=== PATIENT | male | born 1955 | race Caucasian/White ===

== ENCOUNTER 2017-07-30 11:15 | Observation (INO) ==
--- NOTE | 2017-07-30 12:23 | Consult Report ---
History of Present Illness Consult date: 07/30/17 Requesting physician: Viraj Hamron Consult reason: shortness of breath Chief complaint: SOA, chest pain Additional Medical History:: 1. Tobacco use, 1 pack per day for greater than 40 years 2. Family history of congestive heart failure, mother 3 history of low back surgery, Dr. Olsen, for pinched nerve History of present illness: 62-year-old white male with significant tobacco use history discontinued 6 months ago presented to Dr. Harmon's office for evaluation of a one-month history of increasing exertional shortness of breath. Patient also relates 2 episodes of discomfort in his chest that have woken him from sleep. He is a somewhat stoic historian and does not want a give a lot of details regarding his symptoms. His states that he has never wanted to come to the doctor and that it was his idea to come today for evaluation. Reportedly had an abnormal EKG in Dr. Harmon's office and was admitted for progressive angina symptoms. EKG obtained in the hospital here shows sinus rhythm with left atrial enlargement, incomplete right bundle branch block and poor R-wave progression anteriorly. No acute ST segment changes noted. Cardiology consulted for evaluation and recommendations. Meds Home Medications Medication Instructions Recorded Confirmed Type No Known Home Medications 07/30/17 07/30/17 History Allergies Allergy/AdvReac Type Severity Reaction Status Date / Time No Known Allergies Allergy Verified 07/30/17 12:34 Review of Systems - *Cardiovascular Reports chest pain - *Respiratory Reports shortness of breath with activity - *Gastrointestinal Denies abdominal pain - *Musculoskeletal Reports back pain Exam - *Routine Neck Exam Absent: JVD, carotid bruit - *Routine Respiratory Exam Present: decreased breath sounds, CTA bilaterally. Absent: rhonchi, wheezes - *Routine Cardiovascular Exam Present: RRR. Absent: murmur, gallop - *Routine Abdominal Exam Present: firm. Absent: tenderness - *Routine Extremities Exam Absent: edema - *Routine Neurological Exam Present: alert, oriented X3, moving all extremities Assessment and Plan (1) Dyspnea on exertion Current visit: Yes Status: Acute Category: Medical Code(s): R06.09 - Other forms of dyspnea (2) Chest pain Current visit: Yes Status: Acute Category: Medical Code(s): R07.9 - Chest pain, unspecified (3) Elevated blood pressure reading Current visit: Yes Status: Acute Category: Medical Code(s): R03.0 - Elevated blood-pressure reading, without diagnosis of hypertension (4) Ex-smoker for less than 1 year Current visit: Yes Status: Acute Category: Social Hx Code(s): Z78.9 - Other specified health status - Assessment and plan all Dx Assessment and Plan for all problems:: 1. Patient is currently not in any distress. No acute EKG changes noted. Labs are pending at this time. I did discuss the options of medication and stress testing versus proceeding with cardiac catheterization today. Patient does not like the idea of medications and states he would like to proceed with cardiac catheterization to know for sure what his heart arteries look like. 2. Preliminary echocardiogram shows preserved left ventricular ejection fraction. Official report to follow. 3. With elevated blood pressure and heart rate in the setting of shortness of breath and chest pain would recommend adding beta-tamara therapy.
[2017-07-30 12:30] LABS: Basophils # 0.1 K/mm3 (0-0.2); Basophils % 1.5 % (0.1-2.0); Eosinophils # 0.1 K/mm3 (0.0-0.4); Eosinophils % 1.7 % (0.1-12.0); Hematocrit 44.5 % (42.0-52.0); Hemoglobin 15.1 g/dL (14.1-18.0); Lymphocytes # 3.5 K/mm3 (0.7-4.5); Lymphocytes % 65.6 K/mm3 (10-50); Mean Corpuscular HGB Conc 33.9 g/dL (31.8-35.4); Mean Corpuscular Hemoglobin 31.3 pg (27.0-31.2); Mean Corpuscular Volume 92.3 fl (80-94); Mean Platelet Volume 8.5 fl (7.4-10.4); Monocytes # 0.3 K/mm3 (0.1-1.0); Neutrophils # 1.4 K/mm3 (1.8-7.8); Neutrophils % 25.3 % (37.0-80.0); Platelet Count 71 K/mm3 (142-424); Red Blood Count 4.82 M/mm3 (4.60-6.20); Red Cell Distribution Width 13.4 % (11.5-17.5); White Blood Count 5.4 K/mm3 (4.8-10.8)
[2017-07-30 12:43] LABS: Anion Gap 11.1 mEq/L (5-15); Blood Urea Nitrogen 13 mg/dL (7-18); Carbon Dioxide 27 mmol/L (21.0-32.0); Chloride 101 mmol/L (98-107); Glucose 107 mg/dL (74-106); Potassium 4.1 mmoL/L (3.5-5.1); Sodium 135 mmol/L (136-145)
[2017-07-30 13:02] LABS: Eosinophils % 1 % (0-3); Lymphocytes % 49 % (10-50); Monocytes % 7 % (2-9); Neutrophils % 27 % (42-76); Total Cells Counted 100
[2017-07-30 13:03] LABS: RBC Morphology Normal
--- NOTE | 2017-07-30 13:09 | History & Physical Report ---
*Admission Date: 07/30/17 *Chief complaint: Dyspnea with exertion *History of present illness: 62-year-old white male who quit smoking about 3 months ago, came to my office today with a chief complaint of dyspnea over the past 5-6 days. He notices this almost exclusively with exertion but notices that it is becoming worse over the last couple of days and he and his are concerned about it. He does not report chest pain but does report that his chest feels some pressure. Denies limitations or increasing edema. [facility] History I have reviewed the patient's past medical history: Yes Medical History: Denies:: Cancer, Diabetes Mellitus Type 1, Diabetes Mellitus Type 2, Internal Pacemaker, MRSA Other Surgeries: No: Pacemaker Amputation: No Fractures: No - *Social History Educational Level: Completed High School Smoking Status: Former smoker Tobacco Type: cigarettes Alcohol Intake: current Alcohol Intake Frequency:: a few times a week Occupational Status: employed Housing: house Household Members: spouse - Psychiatric History Expresses thoughts of harming self/others: None Suicide Plan Description: No Plan *Family Hx:: Cancer Review of Systems - Review of Systems Review of systems:: pertinent systems reviewed and negative unless documented below Meds Home Medications Medication Instructions Recorded Confirmed Type No Known Home Medications 07/30/17 07/30/17 History Allergies Allergy/AdvReac Type Severity Reaction Status Date / Time No Known Allergies Allergy Verified 07/30/17 12:34 Exam Vital signs and Labs for Last 24 Hours: Temp Pulse Resp 97.9 F 98 H 22 07/30/17 11:59 07/30/17 11:59 07/30/17 11:59 Laboratory Results - last 24 hr 07/30/17 12:20: WBC 5.4, RBC 4.82, Hgb 15.1, Hct 44.5, MCV 92.3, MCH 31.3 H, MCHC 33.9, RDW 13.4, Plt Count 71 L, MPV 8.5, Neut % (Auto) 25.3 L, Lymph % ( Auto) 65.6 H, [place] % (Auto) 6.0, Eos % (Auto) 1.7, Baso % (Auto) 1.5, Neut # ( Auto) 1.4 L, Lymph # (Auto) 3.5, [place] # (Auto) 0.3, Eos # (Auto) 0.1, Baso # ( Auto) 0.1, Total Counted 100, Neutrophils % (Manual) 27 L, Band Neutrophils % 2.0, Lymphocytes % (Manual) 49, Atypical Lymphs % 4.0, Monocytes % (Manual) 7, Eosinophils % (Manual) 1, Metamyelocytes % 5.0 H, Blast Cells % 5.0, Platelet Estimate Marked decrease, RBC Morphology Normal 07/30/17 12:20: Sodium 135 L, Potassium 4.1, Chloride 101, Carbon Dioxide 27, Anion Gap 11.1, BUN 13, Creatinine 0.99, Estimated Creat Clear 88, Estimated GFR 77, Est GFR ( Amer) 93, Glucose 107 H, Magnesium 2.2, Troponin I < 0.02 07/30/17 12:20: B-Natriuretic Peptide 13 I & O for Last 24 hours: Intake & Output 07/28/17 07/29/17 07/30/17 07/31/17 11:59 11:59 11:59 11:59 Weight 171 lb 9 oz Narrative: Patient is alert, pleasant. No JVD, no edema. Heart rate regular without murmurs or gallops. Lungs are clear but have diminished air movement in both bases but no crackles. Abdomen soft and nontender. H&P: Result - Labs Labs: Short CBC 07/30/17 Range/Units 12:20 WBC 5.4 (4.8-10.8) K/mm3 Hgb 15.1 (14.1-18.0) g/dL Hct 44.5 (42.0-52.0) % Plt Count 71 L (142-424) K/mm3 BMP 07/30/17 12:20 Sodium 135 L Potassium 4.1 Chloride 101 Carbon Dioxide 27 BUN 13 Creatinine 0.99 Glucose 107 H Cardiac Enzymes 07/30/17 Range/Units 12:20 Troponin I < 0.02 (0.00-0.06) ng/ml Assessment and Plan (1) Dyspnea on exertion Current visit: Yes Status: Acute Category: Medical Code(s): R06.09 - Other forms of dyspnea (2) Chest pain Current visit: Yes Status: Acute Category: Medical Code(s): R07.9 - Chest pain, unspecified (3) Elevated blood pressure reading Current visit: Yes Status: Acute Category: Medical Code(s): R03.0 - Elevated blood-pressure reading, without diagnosis of hypertension (4) Ex-smoker for less than 1 year Current visit: Yes Status: Acute Category: Social Hx Code(s): Z78.9 - Other specified health status - Assessment and plan all Dx Assessment and Plan for all problems:: Given significant symptomatic exertional chest pressure admit to hospital for observation, serial troponins and cardiology evaluation to consider left heart catheterization.
--- NOTE | 2017-07-30 14:07 | Pharmacy Consult Notes ---
[facility] Pharmacy VTE Monitoring - Patient Demographics Admission date: 07/30/17 Report Date: 07/30/17 Time: 14:07 Allergies/Adverse Reactions: Patient Allergies No Known Allergies Allergy (Verified 07/30/17 12:34) Height: 1.8 m Weight: 80.541 kg Patient Problems: Current Active Problems Dyspnea on exertion (Acute) Chest pain (Acute) Elevated blood pressure reading (Acute) Ex-smoker for less than 1 year (Acute) - VTE Risk Labs: VTE Related Lab Results Hgb 15.1 g/dL (14.1-18.0) 07/30/17 12:20 Hct 44.5 % (42.0-52.0) 07/30/17 12:20 Plt Count 71 K/mm3 (142-424) L 07/30/17 12:20 BUN 13 mg/dL (7-18) 07/30/17 12:20 Creatinine 0.99 mg/dL (0.70-1.30) 07/30/17 12:20 Estimated Creat Clear 88 mL/min (0-300) 07/30/17 12:20 Was VTE Risk Assessment Performed: Yes VTE Score: 1 VTE Risk Level: Very Low Risk Clinical Trial Participant: No - Prophylaxis VTE Prophylaxis Ordered?: Yes Types of VTE Prophylaxis: TEDS Knee High
--- NOTE | 2017-07-30 14:54 | Cardiology Report ---
PROCEDURE: 2-D M-mode and color Doppler study INDICATIONS FOR THE TEST: Chest pain+ COPD Heart Murmur Tobacco Smoking Palpitations Fatigue Syncope Edema Hypertension Diabetes Mellitus Rheumatic Fever SOB+SAVAGE Obesity Hyperlipidemia Family History HD Additional History PATIENT INFORMATION HEIGHT: 71 WEIGHT: 175 GENDER: Male B/P: 110/70 2-D/M-MODE INTERPRETATION: 2-D MEASUREMENTS OBSERVED VALUES IN CMS Right Ventricular Dimension (RVDd) 2.8 Interventricular Septum (Thickness)(IVsd) 0.9 Left Ventricular Internal Dimensions(LVIDd) 4.6 Left Ventricular Posterior Wall (Thickness)(LVPWd) 0.9 Aortic Root 3.2 Aortic Cusp Separation 2.0 Left Atrial Dimensions (LAD) 1.7 2D 1. Left atrium is normal size, left ventricle is normal size, there is no concentric left ventricular hypertrophy, visually estimated ejection fraction 55% with no obvious regional wall motion abnormality. 2. The right atrium and right ventricle are relatively normal size and function. 3. The aortic valve is minimally thickened and fibrosed. 4. The mitral valve has mitral calcification, there is no mitral stenosis 5. The pulmonic valve is poorly visualized. 6. No significant pericardial effusion noted. DOPPLER INTERROGATION: Doppler interrogation of the aortic, mitral and tricuspid valvular presence of mild mitral and tricuspid regurgitation, tricuspid and jet velocity is insufficient for calculation of the right ventricular systolic pressure, diastolic parameters are within normal range. CONCLUSION: 1. Normal left ventricular size, visually estimated ejection fraction 55% with no obvious regional wall motion abnormality, diastolic parameters are within normal range. 2. Mild mitral and tricuspid regurgitation 3. No significant pericardial effusion noted.
--- NOTE | 2017-07-30 17:00 | Discharge Summary ---
General - General Admission date:: 07/30/17 Discharge date: 07/30/17 HPI HPI: 62-year-old white male who quit smoking about 3 months ago, came to my office today with a chief complaint of dyspnea over the past 5-6 days. He notices this almost exclusively with exertion but notices that it is becoming worse over the last couple of days and he and his are concerned about it. He does not report chest pain but does report that his chest feels some pressure. Denies limitations or increasing edema. Hospital Course Hospital Course: Patient was admitted, ruled out for ID by enzyme and EKG criteria. Had an abnormal EKG and given his extensive risk factors was taken for left heart cath which revealed coronary disease but nothing amenable to stenting and nothing that would be seeming to cause his current dyspnea with angina of effort. Chest x-ray revealed evidence of mild bronchitis. He did have hypertensive issues, treated with beta-tamara. This afternoon felt better, after his heart cath. Wish to go home. Discharge was deemed to be safe and he was discharged on beta-tamara, antibiotics and steroids and aspirin. Close follow-up in office to discuss further risk stratification/ reduction for his coronary disease. Objective Vital signs: Temp Pulse Resp BP Pulse Ox 98.9 F 68 18 155/77 95 07/30/17 16:40 07/30/17 16:40 07/30/17 16:40 07/30/17 16:40 07/30/17 16:40 Narrative: Alert, oriented 3, lungs clear except for some rhonchi in both bases, heart rate regular, abdomen soft, radial arm cath site on the right wrist looks great. No distal edema or pulse perfusion deficits. Results Labs on day of discharge: Labs from last 24 hours 07/30/17 07/30/17 07/30/17 12:20 12:20 12:20 WBC 5.4 RBC 4.82 Hgb 15.1 Hct 44.5 MCV 92.3 MCH 31.3 H MCHC 33.9 RDW 13.4 Plt Count 71 L MPV 8.5 Neut % (Auto) 25.3 L Lymph % (Auto) 65.6 H [place] % (Auto) 6.0 Eos % (Auto) 1.7 Baso % (Auto) 1.5 Neut # (Auto) 1.4 L Lymph # (Auto) 3.5 [place] # (Auto) 0.3 Eos # (Auto) 0.1 Baso # (Auto) 0.1 Total Counted 100 Neutrophils % (Manual) 27 L Band Neutrophils % 2.0 Lymphocytes % (Manual) 49 Atypical Lymphs % 4.0 Monocytes % (Manual) 7 Eosinophils % (Manual) 1 Metamyelocytes % 5.0 H Blast Cells % 5.0 Platelet Estimate Marked decrease RBC Morphology Normal Sodium 135 L Potassium 4.1 Chloride 101 Carbon Dioxide 27 Anion Gap 11.1 BUN 13 Creatinine 0.99 Estimated Creat Clear 88 Estimated GFR 77 Est GFR ( Amer) 93 Glucose 107 H Magnesium 2.2 Troponin I < 0.02 B-Natriuretic Peptide 13 Triglycerides Cholesterol LDL Cholesterol VLDL Cholesterol HDL Cholesterol Cholesterol/HDL Ratio 07/30/17 12:20 WBC RBC Hgb Hct MCV MCH MCHC RDW Plt Count MPV Neut % (Auto) Lymph % (Auto) [place] % (Auto) Eos % (Auto) Baso % (Auto) Neut # (Auto) Lymph # (Auto) [place] # (Auto) Eos # (Auto) Baso # (Auto) Total Counted Neutrophils % (Manual) Band Neutrophils % Lymphocytes % (Manual) Atypical Lymphs % Monocytes % (Manual) Eosinophils % (Manual) Metamyelocytes % Blast Cells % Platelet Estimate RBC Morphology Sodium Potassium Chloride Carbon Dioxide Anion Gap BUN Creatinine Estimated Creat Clear Estimated GFR Est GFR ( Amer) Glucose Magnesium Troponin I B-Natriuretic Peptide Triglycerides 292 H Cholesterol 96 L LDL Cholesterol 30 VLDL Cholesterol 58 H HDL Cholesterol 8 L Cholesterol/HDL Ratio 12.0 H DS: Diagnosis - Discharge Diagnosis (1) Dyspnea on exertion Status: Acute (2) Chest pain Status: Acute (3) Elevated blood pressure reading Status: Acute (4) Ex-smoker for less than 1 year Status: Acute (5) Acute bronchitis, unspecified Status: Acute (6) Coronary atherosclerosis of [place] coronary artery Status: Acute Discharge Plan - Patient Discharge Instructions ACTIVITY: Continue current activity DIET: cardiac - Follow up Plan Follow up with: Viraj Harmon MD [Primary Care Provider] - 08/05/17 9:00 am Disposition: Home, Self-Correction Medications: Home Medications Medication Instructions Recorded Confirmed Type No Known Home Medications 07/30/17 07/30/17 History Prescriptions/Medication Reconciliation: New Aspirin [Aspirin 81mg chewable tab] 81 mg PO DAILY #30 tab.chew Azithromycin [Zithromax 250mg tab] 250 mg PO DIRECTED #6 tab Metoprolol Succinate 50 mg PO DAILY #30 tab.er.24h predniSONE [Deltasone 20mg tablet] 20 mg PO BID 7 Days #14 tab No Action No Known Home Medications
[2017-07-30 18:36] VITALS: BP 119/61
== END 2017-07-30 18:37 | disposition home or self-care (01) ==
LOC: 2ND
PROVIDERS: ADMIT Internal Medicine Adolescent Medicine; ATTEND Internal Medicine Adolescent Medicine

== ENCOUNTER → 2017-08-12 07:02 | Outpatient (CLI) | payer BC, SELFPAY | PROVIDERS: Visit Provider Internal Medicine | DX: I25.10 Atherosclerotic heart disease of native coronary artery without angina pectoris (principal) ==

== ENCOUNTER → 2017-08-13 07:01 | Outpatient (CLI) | payer BC, SELFPAY ==
[2017-08-13 09:37] LABS: Alanine Aminotransferase 130 U/L (12-78); Albumin Level 2.9 gm/dL (3.4-5.0); Alkaline Phosphatase 104 U/L (46-116); Aspartate Amino Transferase 106 U/L (15-37); Bilirubin,Direct 0.7 mg/dL (0.0-0.2); Bilirubin,Indirect 1.2 mg/dL (0.0-0.9); Bilirubin,Total 1.9 mg/dL (0.2-1.0); Chol/HDL Ratio 9.2 (1-3.5); Cholesterol 129 mg/dL (140-200); HDL Cholesterol 14 mg/dL (27-67); LDL Cholesterol 84 mg/dL (0-130); Total Protein,Serum 7.2 gm/dL (6.4-8.2); Triglycerides 154 mg/dL (30-200); VLDL Cholesterol 31 mg/dL (0-40)
== END ==
PROVIDERS: Visit Provider Internal Medicine
DX: I25.10 Atherosclerotic heart disease of native coronary artery without angina pectoris (principal); J20.9 Acute bronchitis, unspecified; R07.9 Chest pain, unspecified; R06.09 Other forms of dyspnea; R03.0 Elevated blood-pressure reading, without diagnosis of hypertension; Z78.9 Other specified health status
CPT/HCPCS: 36415; 80061; 80076

== ENCOUNTER → 2017-08-24 08:52 | Outpatient (CLI) | payer BC, SELFPAY ==
--- NOTE | 2017-08-24 08:58 | US_ITS ---
US abdomen limited History:Elevated liver enzymes Ordering Physician:Monica Gardner Patient Age: 62 years Comparison:None Findings: Pancreas:Unremarkable. No obvious mass or abnormal fluid collection. No ductal dilatation Liver:No focal liver lesions demonstrated. Homogeneous echogenicity. No intrahepatic biliary ductal dilatation evident Right Kidney:Unremarkable. Normal size and echogenicity. No hydronephrosis Gallbladder:No gallstones, gallbladder wall thickening, pericholecystic fluid, or biliary dilatation. Gallbladder is mildly distended at 11 x 4 cm Impression: Mildly distended gallbladder otherwise negative right upper quadrant ultrasound. No stones apparent
[2017-08-25 10:21] LABS: Hep A Ab, IgM Negative (Negative); Hepatitis B Core Antibody IgM Negative (Negative); Hepatitis B Surface Antigen Negative (Negative)
[2017-08-26 10:21] LABS: Hepatitis C Antibody >11.0 s/co ratio (0.0-0.9)
[2017-09-03 20:04] LABS: Hepatitis C Genotype 3 (.)
== END ==
PROVIDERS: Family Provider Internal Medicine Adolescent Medicine; PCP Internal Medicine Adolescent Medicine; Visit Provider Nurse Practitioner Family
DX: R74.8 Abnormal levels of other serum enzymes (principal); R76.8 Other specified abnormal immunological findings in serum
CPT/HCPCS: 36415; 76705; 80074; 87522

== ENCOUNTER → 2017-09-01 09:34 | Outpatient (CLI) | payer BC, SELFPAY ==
[2017-09-01 10:30] VITALS: PULSE 61; PULSE 67
== END ==
PROVIDERS: Family Provider Internal Medicine Adolescent Medicine; PCP Internal Medicine Adolescent Medicine; Visit Provider Internal Medicine
DX: R06.09 Other forms of dyspnea (principal)
CPT/HCPCS: 94060; 94640; 94726; 94729

== ENCOUNTER → 2018-03-05 10:29 | Outpatient (CLI) | payer BC, SELFPAY | PROVIDERS: Visit Provider Nurse Practitioner | DX: Z00.00 Encounter for general adult medical examination without abnormal findings (principal); R76.8 Other specified abnormal immunological findings in serum | CPT/HCPCS: 36415; 87900 ==

== ENCOUNTER → 2018-03-24 10:56 | Outpatient (CLI) | payer BC, SELFPAY | PROVIDERS: Visit Provider Nurse Practitioner | DX: Z00.00 Encounter for general adult medical examination without abnormal findings (principal); R76.8 Other specified abnormal immunological findings in serum | CPT/HCPCS: 36415 ==

== ENCOUNTER → 2018-05-25 17:48 | Outpatient (CLI) | payer BC, SELFPAY ==
[2018-05-25 18:24] LABS: Basophils # 0.1 K/mm3 (0-0.2); Basophils % 0.9 % (0.1-2.0); Eosinophils # 0.2 K/mm3 (0.0-0.4); Eosinophils % 2.8 % (0.1-12.0); Hematocrit 42.1 % (42.0-52.0); Hemoglobin 14.6 g/dL (14.1-18.0); Lymphocytes # 2.7 K/mm3 (0.7-4.5); Mean Corpuscular HGB Conc 34.6 g/dL (31.8-35.4); Mean Corpuscular Hemoglobin 30.8 pg (27.0-31.2); Mean Corpuscular Volume 89.2 fl (80-94); Mean Platelet Volume 7.3 fl (7.4-10.4); Monocytes # 0.4 K/mm3 (0.1-1.0); Monocytes % 7.1 % (1.7-9.3); Neutrophils # 2.8 K/mm3 (1.8-7.8); Neutrophils % 45.2 % (37.0-80.0); Platelet Count 125 K/mm3 (142-424); Red Blood Count 4.72 M/mm3 (4.60-6.20); White Blood Count 6.1 K/mm3 (4.8-10.8)
[2018-05-25 19:19] LABS: Alanine Aminotransferase 57 U/L (12-78); Albumin Level 3.6 gm/dL (3.4-5.0); Albumin/Globulin Ratio 0.8 (1.1-1.8); Alkaline Phosphatase 100 U/L (46-116); Anion Gap 16.2 mEq/L (5-15); Aspartate Amino Transferase 50 U/L (15-37); Bilirubin,Total 0.8 mg/dL (0.2-1.0); Blood Urea Nitrogen 14 mg/dL (7-18); Calcium 9.6 mg/dL (8.5-10.1); Carbon Dioxide 21 mmol/L (21.0-32.0); Chloride 106 mmol/L (98-107); Creatinine,Serum 0.95 mg/dL (0.70-1.30); Estimated Glomerular Filt Rate 81 ml/min (>60); GFR (African American) 98 ML/MIN (>60); Globulin 4.7 gm/dl (1.3-3.2); Glucose 97 mg/dL (74-106); Potassium 4.2 mmoL/L (3.5-5.1); Sodium 139 mmol/L (136-145); Total Protein,Serum 8.3 gm/dL (6.4-8.2)
== END ==
PROVIDERS: Visit Provider Nurse Practitioner
DX: B19.20 Unspecified viral hepatitis C without hepatic coma (principal); R94.5 Abnormal results of liver function studies; Z79.899 Other long term (current) drug therapy
CPT/HCPCS: 36415; 80053; 85025; 87522

== ENCOUNTER → 2018-06-22 17:12 | Outpatient (CLI) | payer BC, SELFPAY | PROVIDERS: Visit Provider Nurse Practitioner | DX: B19.20 Unspecified viral hepatitis C without hepatic coma (principal); R94.5 Abnormal results of liver function studies; R76.8 Other specified abnormal immunological findings in serum; Z79.899 Other long term (current) drug therapy | CPT/HCPCS: 36415; 87522 ==

== ENCOUNTER → 2018-07-06 12:42 | Outpatient (CLI) | payer BC, SELFPAY ==
[2018-07-06 14:38] LABS: Basophils # 0.1 K/mm3 (0-0.2); Eosinophils # 0.1 K/mm3 (0.0-0.4); Eosinophils % 2.4 % (0.1-12.0); Hematocrit 41.1 % (42.0-52.0); Hemoglobin 13.9 g/dL (14.1-18.0); Lymphocytes # 2.1 K/mm3 (0.7-4.5); Lymphocytes % 44.1 % (10-50); Mean Corpuscular HGB Conc 33.9 g/dL (31.8-35.4); Mean Corpuscular Hemoglobin 30.8 pg (27.0-31.2); Mean Corpuscular Volume 90.8 fl (80-94); Mean Platelet Volume 7.7 fl (7.4-10.4); Monocytes # 0.3 K/mm3 (0.1-1.0); Monocytes % 6.6 % (1.7-9.3); Neutrophils # 2.2 K/mm3 (1.8-7.8); Neutrophils % 45.8 % (37.0-80.0); Platelet Count 104 K/mm3 (142-424); Red Blood Count 4.53 M/mm3 (4.60-6.20); Red Cell Distribution Width 13.5 % (11.5-17.5); White Blood Count 4.7 K/mm3 (4.8-10.8)
[2018-07-06 15:38] LABS: Alanine Aminotransferase 38 U/L (12-78); Albumin Level 3.6 gm/dL (3.4-5.0); Albumin/Globulin Ratio 0.8 (1.1-1.8); Alkaline Phosphatase 89 U/L (46-116); Anion Gap 13.1 mEq/L (5-15); Aspartate Amino Transferase 31 U/L (15-37); Bilirubin,Total 0.8 mg/dL (0.2-1.0); Blood Urea Nitrogen 16 mg/dL (7-18); Calcium 9.2 mg/dL (8.5-10.1); Carbon Dioxide 24 mmol/L (21.0-32.0); Chloride 106 mmol/L (98-107); Creatinine,Serum 1.04 mg/dL (0.70-1.30); Estimated Glomerular Filt Rate 73 ml/min (>60); GFR (African American) 88 ML/MIN (>60); Globulin 4.4 gm/dl (1.3-3.2); Glucose 138 mg/dL (74-106); Potassium 4.1 mmoL/L (3.5-5.1); Sodium 139 mmol/L (136-145)
== END ==
PROVIDERS: Visit Provider Nurse Practitioner
DX: B19.20 Unspecified viral hepatitis C without hepatic coma (principal); R94.5 Abnormal results of liver function studies; Z79.899 Other long term (current) drug therapy
CPT/HCPCS: 36415; 80053; 85025

== ENCOUNTER → 2018-08-03 17:10 | Outpatient (CLI) | payer BC, SELFPAY ==
[2018-08-03 17:27] LABS: Basophils # 0.1 K/mm3 (0-0.2); Basophils % 1.1 % (0.1-2.0); Eosinophils # 0.2 K/mm3 (0.0-0.4); Eosinophils % 2.8 % (0.1-12.0); Hematocrit 39.7 % (42.0-52.0); Hemoglobin 14.1 g/dL (14.1-18.0); Lymphocytes # 2.8 K/mm3 (0.7-4.5); Lymphocytes % 49.1 % (10-50); Mean Corpuscular HGB Conc 35.5 g/dL (31.8-35.4); Mean Corpuscular Hemoglobin 31.5 pg (27.0-31.2); Mean Corpuscular Volume 88.8 fl (80-94); Mean Platelet Volume 7.7 fl (7.4-10.4); Monocytes # 0.5 K/mm3 (0.1-1.0); Monocytes % 8.4 % (1.7-9.3); Neutrophils # 2.2 K/mm3 (1.8-7.8); Neutrophils % 38.6 % (37.0-80.0); Platelet Count 119 K/mm3 (142-424); Red Blood Count 4.47 M/mm3 (4.60-6.20); Red Cell Distribution Width 13.5 % (11.5-17.5); White Blood Count 5.7 K/mm3 (4.8-10.8)
[2018-08-03 17:32] LABS: INR 1.06 (0.9-1.1)
[2018-08-03 19:02] LABS: Alanine Aminotransferase 39 U/L (12-78); Albumin Level 3.5 gm/dL (3.4-5.0); Albumin/Globulin Ratio 0.9 (1.1-1.8); Alkaline Phosphatase 95 U/L (46-116); Aspartate Amino Transferase 35 U/L (15-37); Bilirubin,Total 0.7 mg/dL (0.2-1.0); Blood Urea Nitrogen 14 mg/dL (7-18); Calcium 9.2 mg/dL (8.5-10.1); Carbon Dioxide 24 mmol/L (21.0-32.0); Chloride 105 mmol/L (98-107); Creatinine,Serum 1.06 mg/dL (0.70-1.30); Estimated Glomerular Filt Rate 71 ml/min (>60); GFR (African American) 86 ML/MIN (>60); Glucose 65 mg/dL (74-106); Sodium 138 mmol/L (136-145); Total Protein,Serum 7.5 gm/dL (6.4-8.2)
[2018-08-06 13:24] LABS: HCV Genotype Charge YES
== END ==
PROVIDERS: Visit Provider Nurse Practitioner
DX: B19.20 Unspecified viral hepatitis C without hepatic coma (principal); Z79.899 Other long term (current) drug therapy
CPT/HCPCS: 36415; 80053; 85025; 85610; 87522; 87902

== ENCOUNTER → 2018-09-01 13:13 | Outpatient (CLI) | payer BC, SELFPAY ==
[2018-09-01 14:32] LABS: Basophils % 0.7 % (0.1-2.0); Eosinophils # 0.2 K/mm3 (0.0-0.4); Eosinophils % 4.4 % (0.1-12.0); Hematocrit 40.7 % (42.0-52.0); Hemoglobin 13.3 g/dL (14.1-18.0); Lymphocytes % 44.8 % (10-50); Mean Corpuscular HGB Conc 32.7 g/dL (31.8-35.4); Mean Corpuscular Volume 88.7 fl (80-94); Monocytes # 0.3 K/mm3 (0.1-1.0); Monocytes % 7.3 % (1.7-9.3); Neutrophils # 1.9 K/mm3 (1.8-7.8); Neutrophils % 42.9 % (37.0-80.0); Platelet Count 109 K/mm3 (142-424); Red Blood Count 4.59 M/mm3 (4.60-6.20); Red Cell Distribution Width 13.3 % (11.5-17.5); White Blood Count 4.4 K/mm3 (4.8-10.8)
[2018-09-01 16:22] LABS: Alanine Aminotransferase 31 U/L (12-78); Albumin Level 3.4 gm/dL (3.4-5.0); Albumin/Globulin Ratio 0.9 (1.1-1.8); Alkaline Phosphatase 89 U/L (46-116); Anion Gap 16.1 mEq/L (5-15); Aspartate Amino Transferase 30 U/L (15-37); Bilirubin,Total 0.8 mg/dL (0.2-1.0); Blood Urea Nitrogen 15 mg/dL (7-18); Calcium 8.9 mg/dL (8.5-10.1); Carbon Dioxide 23 mmol/L (21.0-32.0); Chloride 106 mmol/L (98-107); Creatinine,Serum 1.12 mg/dL (0.70-1.30); Estimated Glomerular Filt Rate 66 ml/min (>60); GFR (African American) 80 ML/MIN (>60); Glucose 165 mg/dL (74-106); Potassium 4.1 mmoL/L (3.5-5.1); Sodium 141 mmol/L (136-145); Total Protein,Serum 7.4 gm/dL (6.4-8.2)
[2018-09-04 15:08] LABS: HCV Genotype Charge YES
== END ==
PROVIDERS: Visit Provider Nurse Practitioner Family
DX: Z00.00 Encounter for general adult medical examination without abnormal findings (principal); Z79.899 Other long term (current) drug therapy; B19.20 Unspecified viral hepatitis C without hepatic coma
CPT/HCPCS: 36415; 80053; 85025; 87522; 87902

== ENCOUNTER → 2019-02-08 07:08 | Outpatient (CLI) | payer BC, SELFPAY ==
[2019-02-08 15:05] LABS: Alanine Aminotransferase 24 U/L (12-78); Albumin Level 3.7 gm/dL (3.4-5.0); Albumin/Globulin Ratio 0.9 (1.1-1.8); Alkaline Phosphatase 90 U/L (46-116); Anion Gap 16.4 mEq/L (5-15); Aspartate Amino Transferase 28 U/L (15-37); Blood Urea Nitrogen 13 mg/dL (7-18); Calcium 9.5 mg/dL (8.5-10.1); Carbon Dioxide 24 mmol/L (21.0-32.0); Chloride 105 mmol/L (98-107); Chol/HDL Ratio 4.1 (1-3.5); Cholesterol 161 mg/dL (140-200); Creatinine,Serum 1.03 mg/dL (0.70-1.30); Estimated Glomerular Filt Rate 73 ml/min (>60); GFR (African American) 89 ML/MIN (>60); Glucose 96 mg/dL (74-106); HDL Cholesterol 39 mg/dL (27-67); LDL Cholesterol 95 mg/dL (0-130); Potassium 4.4 mmoL/L (3.5-5.1); Sodium 141 mmol/L (136-145); Total Protein,Serum 7.7 gm/dL (6.4-8.2); Triglycerides 135 mg/dL (30-200); VLDL Cholesterol 27 mg/dL (0-40)
== END ==
PROVIDERS: PCP Internal Medicine Adolescent Medicine; Visit Provider Internal Medicine Adolescent Medicine
DX: Z00.00 Encounter for general adult medical examination without abnormal findings (principal)
CPT/HCPCS: 36415; 80053; 80061

== ENCOUNTER → 2019-02-15 12:23 | Outpatient (CLI) | payer BC, SELFPAY ==
[2019-02-15 13:00] LABS: Basophils # 0.1 K/mm3 (0-0.2); Basophils % 0.9 % (0.1-2.0); Eosinophils # 0.2 K/mm3 (0.0-0.4); Eosinophils % 3.5 % (0.1-12.0); Hematocrit 42.2 % (42.0-52.0); Hemoglobin 14.6 g/dL (14.1-18.0); Lymphocytes % 37.1 % (10-50); Mean Corpuscular HGB Conc 34.5 g/dL (31.8-35.4); Mean Corpuscular Volume 89.6 fl (80-94); Mean Platelet Volume 9.3 fl (7.4-10.4); Monocytes # 0.4 K/mm3 (0.1-1.0); Monocytes % 6.4 % (1.7-9.3); Neutrophils # 2.8 K/mm3 (1.8-7.8); Neutrophils % 52.2 % (37.0-80.0); Platelet Count 64 K/mm3 (142-424); Red Blood Count 4.71 M/mm3 (4.60-6.20); Red Cell Distribution Width 13.1 % (11.5-17.5); White Blood Count 5.4 K/mm3 (4.8-10.8)
[2019-02-15 13:11] LABS: Prothrombin Time 11.4 seconds (9.4-11.8)
[2019-02-15 14:50] LABS: Alanine Aminotransferase 28 U/L (12-78); Albumin Level 3.6 gm/dL (3.4-5.0); Albumin/Globulin Ratio 0.9 (1.1-1.8); Alkaline Phosphatase 89 U/L (46-116); Anion Gap 15.1 mEq/L (5-15); Aspartate Amino Transferase 28 U/L (15-37); Bilirubin,Total 0.9 mg/dL (0.2-1.0); Blood Urea Nitrogen 16 mg/dL (7-18); Calcium 8.8 mg/dL (8.5-10.1); Carbon Dioxide 24 mmol/L (21.0-32.0); Chloride 105 mmol/L (98-107); Creatinine,Serum 1.06 mg/dL (0.70-1.30); Estimated Glomerular Filt Rate 71 ml/min (>60); GFR (African American) 86 ML/MIN (>60); Globulin 3.8 gm/dl (1.3-3.2); Glucose 171 mg/dL (74-106); Potassium 4.1 mmoL/L (3.5-5.1); Sodium 140 mmol/L (136-145); Total Protein,Serum 7.4 gm/dL (6.4-8.2)
== END ==
PROVIDERS: Visit Provider Nurse Practitioner Family
DX: B19.20 Unspecified viral hepatitis C without hepatic coma (principal); K74.60 Unspecified cirrhosis of liver; R94.5 Abnormal results of liver function studies; Z79.899 Other long term (current) drug therapy
CPT/HCPCS: 36415; 80053; 85025; 85610; 87522

== ENCOUNTER → 2019-07-12 09:22 | Outpatient (CLI) | payer BC, SELFPAY ==
--- NOTE | 2019-07-12 09:26 | MR_ITS ---
PROCEDURE: MR HEAD/BRAIN WO CON CLINICAL INDICATION: SYNCOPE, ACUTE INTRACTABLE HEADACHE Vertigo COMPARISON: No exams were available for comparison TECHNIQUE: Routine multiplanar multi echo sequences are performed without gadolinium enhancement. FINDINGS: No midline shift, mass effect, intracranial hemorrhage, or hydrocephalus is evident. The cerebellopontine angles, cerebellum, and brainstem have an unremarkable appearance. No evidence of acute infarction. There are few scattered periventricular and subcortical T2 white matter hyperintensities in the supratentorial region and 1 in the right aspect of the [place]. These are nonspecific. Incidental note is made dilated perivascular spaces. There is a partial empty sella. The optic chiasm, corpus callosum, and craniocervical junction have an unremarkable appearance. No mastoid effusion or sinus air-fluid level. IMPRESSION: 1. Scattered T2 white matter hyperintensities. These are nonspecific and may be seen with ischemic gliotic change from microvascular disease or migraine headache. Demyelinating process also included in the differential diagnosis but felt to be less likely due to imaging characteristics. 2. No acute intracranial findings Dictated by: Kiel Munoz MD 07/13/2019 10:39 Electronically signed by Kiel Munoz MD in [place] 07/13/2019 10:39
== END ==
PROVIDERS: PCP Internal Medicine Adolescent Medicine; Visit Provider Internal Medicine Adolescent Medicine
DX: R55 Syncope and collapse (principal); R51 Headache
CPT/HCPCS: 70551

== ENCOUNTER → 2021-02-04 11:33 | Outpatient (CLI) | payer BC, SELFPAY | PROVIDERS: Visit Provider Nurse Practitioner Family | DX: U07.1 COVID-19 (principal) | CPT/HCPCS: C9803; U0003; U0005 ==

== ENCOUNTER → 2021-02-07 08:01 | Outpatient (CLI) | payer BC, SELFPAY ==
[2021-02-07] VITALS (8 sets, daily range): BP systolic 114–132; BP diastolic 58–97; PULSE 59–64; RESP 20–22; TEMP 36.3; O2SAT 20–97
== END | disposition home or self-care (01) ==
PROVIDERS: PCP Internal Medicine Adolescent Medicine; Visit Provider Internal Medicine Adolescent Medicine
DX: U07.1 COVID-19 (principal); Z23 Encounter for immunization
CPT/HCPCS: 96365

== ENCOUNTER → 2023-03-09 16:12 | Outpatient (CLI) | payer MEDICARE, SELFPAY ==
--- NOTE | 2023-03-09 16:19 | XR_ITS ---
PROCEDURE INFORMATION: Exam: XR Chest Exam date and time: 03/09/2023 4:25 PM Age: 67 years old Clinical indication: Cough and shortness of breath; Additional info: Acute bronchitis TECHNIQUE: Imaging protocol: Radiologic exam of the chest. Views: 2 views. COMPARISON: CR [id number] XR chest portable 07/30/2017 4:19 PM FINDINGS: Lungs: No evidence of acute airspace consolidation. No pulmonary edema. Pleural spaces: No significant pleural effusion. No pneumothorax. Heart/Mediastinum: Cardiomediastinal sil[place]hette is within normal limits. Bones/joints: No evidence of acute osseous abnormality. IMPRESSION: No evidence of acute cardiopulmonary disease.
== END ==
LOC: RAD 16:15
PROVIDERS: PCP Internal Medicine Adolescent Medicine; Visit Provider Physician Assistant
DX: J20.9 Acute bronchitis, unspecified (principal)
CPT/HCPCS: 71046